=== PATIENT | female | born 1960 | race Caucasian/White ===

== ENCOUNTER → 2022-01-26 | Outpatient (CLI) | payer MEDICARE, OTHER ==
[2022-01-26 14:49] LABS: Campylobacter Sp Detected (NOT DETECT); E. Coli O157 Not Detected (NOT DETECT); Enteroaggregative E. coli-EAEC Not Detected (NOT DETECT); Enteropathogenic E. coli-EPEC Detected (NOT DETECT); Enterotoxigenic E. coli-ETEC Not Detected (NOT DETECT); Plesiomonas Shigelloides Not Detected (NOT DETECT); Salmonella Sp Not Detected (NOT DETECT); Shiga Toxin-prod E. coli-STEC Not Detected (NOT DETECT); Vibrio Cholerae Not Detected (NOT DETECT); Vibrio Sp Not Detected (NOT DETECT); Yersinia Enterocolitica Not Detected (NOT DETECT)
[2022-01-26 14:50] LABS: Adenovirus F 40/41 Not Detected (NOT DETECT); Astrovirus Not Detected (NOT DETECT); Cryptosporidium Not Detected (NOT DETECT); Cyclospora Cayetanensis Not Detected (NOT DETECT); Entamoeba Histolytica Not Detected (NOT DETECT); Giardia Lamblia Not Detected (NOT DETECT); Norovirus GI/GII Not Detected (NOT DETECT); Rotavirus A Not Detected (NOT DETECT); Sapovirus Not Detected (NOT DETECT); Shigella/Enteroin E. coli-EIEC Not Detected (NOT DETECT)
== END | disposition home or self-care (01) ==
LOC: LAB 07:30 → LAB SHORT 07:30
PROVIDERS: Family Medicine
DX: K52.9 Noninfective gastroenteritis and colitis, unspecified (principal)
CPT/HCPCS: 87507

== ENCOUNTER 2022-03-31 19:15 | Emergency (ER) | payer MEDICARE, OTHER ==
[~2022-03-31] VITALS: Ht 157.5 cm; Wt 78.5 kg
== END 2022-03-31 21:45 | disposition home or self-care (01) ==
LOC: ER 19:15
DX: S01.01XA Laceration without foreign body of scalp, initial encounter (principal); W22.09XA Striking against other stationary object, initial encounter; Z87.891 Personal history of nicotine dependence
CPT/HCPCS: 12001; 99282

== ENCOUNTER 2022-07-13 10:15 | Day surgery (SDC) | payer MEDICARE, OTHER ==
[~2022-07-13] VITALS: Ht 157.5 cm; Wt 74.1 kg
[2022-07-13] MEDS ORDERED: ALBU90OI (11:27)
[2022-07-13] MEDS ORDERED: BUPR150ER (11:27)
[2022-07-13] MEDS ORDERED: ATOR40TA (11:27)
[2022-07-13] MEDS ORDERED: VITAMIN D310 MC4 (11:28)
[2022-07-13] MEDS ORDERED: FERSU300 (11:28)
[2022-07-13] MEDS ORDERED: B-12500 MC2 (11:28)
[2022-07-13] MEDS ORDERED: NAPR500 (11:29)
[2022-07-13] MEDS ORDERED: OMEP20ER (11:29)
[2022-07-13] MEDS ORDERED: OXYC5 (11:29)
[2022-07-13] MEDS ORDERED: PREG75 (11:29)
[2022-07-13] MEDS ORDERED: SERT100 (11:29)
[2022-07-13 13:53] VITALS: BP 146/58
== END 2022-07-13 13:46 | disposition home or self-care (01) ==
LOC: ORSCSDS 10:15
PROVIDERS: Orthopaedic Surgery
PROC: 01N54ZZ Release Median Nerve, Percutaneous Endoscopic Approach (ICD-10-PCS; principal; 2022-07-13 12:00)
DX: G56.02 Carpal tunnel syndrome, left upper limb (principal); I10 Essential (primary) hypertension; E78.5 Hyperlipidemia, unspecified; Z87.891 Personal history of nicotine dependence; Z79.899 Other long term (current) drug therapy
CPT/HCPCS: 82947; J2250; J7120

== ENCOUNTER → 2022-09-03 | Outpatient (CLI) | payer MEDICARE, OTHER ==
[~2022-09-03] MED LIST: ALBU90OI; ATOR40TA; B-12500 MC2; BUPR150ER; FERSU300; NAPR500; OMEP20ER; OXYC5; PREG75; SERT100; VITAMIN D310 MC4
== END ==
LOC: LAB 13:31 → LAB SHORT 13:31
DX: R30.0 Dysuria (principal)
CPT/HCPCS: 87077; 87086; 87186

== ENCOUNTER 2022-09-22 21:19 | Emergency (ER) | payer MEDICARE, OTHER ==
[~2022-09-22] VITALS: Ht 157.5 cm; Wt 90.7 kg
[2022-09-22 21:30] VITALS: BP 162/72
[2022-09-22 22:04] LABS: BASOPHILS ABSOLUTE AUTO 0.01 K/mm3 (0.00-0.23); BASOPHILS PERCENT AUTO 0 % (0-2); EOSINOPHILS ABSOLUTE AUTO 0.08 K/mm3 (0.00-0.68); EOSINOPHILS PERCENT AUTO 2 % (0-6); Hematocrit 40.7 % (33.0-51.0); Hemoglobin 13.3 g/dL (11.5-16.0); IMMATURE GRAN PERCENT AUTO 0 % (0-1); LYMPHOCYTES ABSOLUTE AUTO 1.21 K/mm3 (0.84-5.20); LYMPHOCYTES PERCENT AUTO 25 % (21-46); MONOCYTES ABSOLUTE AUTO 0.42 K/mm3 (0.16-1.47); MONOCYTES PERCENT AUTO 9 % (4-13); Mean Corpuscular HGB 29.3 pg (26.0-34.0); Mean Corpuscular HGB Conc 32.7 g/dL (31.5-36.5); Mean Corpuscular Volume 90 fL (80-100); Mean Platelet Volume 12.7 fL (9.1-12.4); NEUTROPHILS ABSOLUTE AUTO 3.07 K/mm3 (1.96-9.15); NEUTROPHILS PERCENT AUTO 64 % (41-73); Platelet Count 82 K/mm3 (150-400); RDW Coefficient Variation 12.7 % (11.7-14.2); RDW Standard Deviation 41.7 fL (35.1-46.3); Red Blood Cell Count 4.54 M/mm3 (3.80-5.20); White Blood Cell Count 4.79 K/mm3 (4.00-11.30)
[2022-09-22 22:13] LABS: Albumin, Blood 3.8 g/dL (3.4-5.0); Albumin/Globulin Ratio 1.3 (0.8-1.8); Bilirubin, Total 0.4 mg/dL (0.1-1.0); Calcium, Blood 8.8 mg/dL (8.5-10.1); Creatinine, Blood 0.79 mg/dL (0.40-1.00); Potassium, Blood 4.3 mmol/L (3.5-5.5); Total Protein, Blood 6.8 g/dL (6.4-8.2)
[2022-09-22 22:42] LABS: Source, Urine Clean Catch
[2022-09-22 22:58] LABS: Appearance, Urine Clear (Clear); Bilirubin, Urine Neg (Neg); Blood, Urine Neg (Neg); Color, Urine Yellow (P-Yellow); Glucose Qualitative, Urine Neg (Neg); Ketones, Urine Neg (Neg); Leukocyte Esterase, Urine Neg (Neg); Nitrite, Urine Neg (Neg); Protein, Urine Neg (Neg); Specific Gravity, Urine 1.015 (1.003-1.022); Urobilinogen, Urine NORM (Normal)
[2022-09-22] MEDS ORDERED: TIZA4 PO (23:59)
== END 2022-09-23 00:16 | disposition home or self-care (01) ==
LOC: ER 21:19
PROVIDERS: Physician Assistant
DX: S39.012A Strain of muscle, fascia and tendon of lower back, initial encounter (principal); S33.5XXA Sprain of ligaments of lumbar spine, initial encounter; E78.5 Hyperlipidemia, unspecified; K21.9 Gastro-esophageal reflux disease without esophagitis; Z88.2 Allergy status to sulfonamides; Z79.899 Other long term (current) drug therapy; Z87.891 Personal history of nicotine dependence; X50.1XXA Overexertion from prolonged static or awkward postures, initial encounter
CPT/HCPCS: 74176; 80053; 81003; 85025; 93005; 93010; 96374; 99284-25; A9270; J1885; Q9967

== ENCOUNTER → 2022-09-29 | Outpatient (CLI) | payer MEDICARE, OTHER ==
[~2022-09-29] MED LIST changes: +TIZA4 PO
[2022-09-30 11:35] LABS: Candida species (DNA Probe) Positive (NEGATIVE); G. vaginalis (DNA Probe) Negative (NEGATIVE); T. vaginalis (DNA Probe) Negative (NEGATIVE)
== END ==
LOC: LAB 14:39 → LAB SHORT 14:39
PROVIDERS: Family Medicine
DX: N76.0 Acute vaginitis (principal)
CPT/HCPCS: 87480; 87510; 87660

== ENCOUNTER 2022-12-23 19:56 | Emergency (ER) | payer MEDICARE, OTHER ==
[~2022-12-23] VITALS: Ht 157.5 cm; Wt 75.3 kg
[2022-12-23 20:29] VITALS: BP 145/68
== END 2022-12-23 21:35 | disposition home or self-care (01) ==
LOC: ER 19:56
DX: B34.9 Viral infection, unspecified (principal); R05.9 Cough, unspecified; E78.5 Hyperlipidemia, unspecified; K21.9 Gastro-esophageal reflux disease without esophagitis; F32.A Depression, unspecified; M79.7 Fibromyalgia; Z87.891 Personal history of nicotine dependence; Z79.899 Other long term (current) drug therapy
CPT/HCPCS: 71046; 99283-25

== ENCOUNTER → 2023-06-30 | Outpatient (CLI) | payer MEDICARE, OTHER ==
[2023-06-30 17:44] LABS: Adenovirus F 40/41 Not Detected (NOT DETECT); Astrovirus Not Detected (NOT DETECT); Campylobacter Sp Not Detected (NOT DETECT); Cryptosporidium Not Detected (NOT DETECT); Cyclospora Cayetanensis Not Detected (NOT DETECT); E. Coli O157 Not Detected (NOT DETECT); Entamoeba Histolytica Not Detected (NOT DETECT); Enteroaggregative E. coli-EAEC Not Detected (NOT DETECT); Enteropathogenic E. coli-EPEC Detected (NOT DETECT); Enterotoxigenic E. coli-ETEC Not Detected (NOT DETECT); Giardia Lamblia Not Detected (NOT DETECT); Norovirus GI/GII Not Detected (NOT DETECT); Plesiomonas Shigelloides Not Detected (NOT DETECT); Rotavirus A Not Detected (NOT DETECT); Salmonella Sp Not Detected (NOT DETECT); Sapovirus Not Detected (NOT DETECT); Shiga Toxin-prod E. coli-STEC Not Detected (NOT DETECT); Shigella/Enteroin E. coli-EIEC Not Detected (NOT DETECT); Vibrio Cholerae Not Detected (NOT DETECT); Vibrio Sp Not Detected (NOT DETECT); Yersinia Enterocolitica Not Detected (NOT DETECT)
== END | disposition home or self-care (01) ==
LOC: LAB SHORT 00:30 → LAB 00:30
PROVIDERS: Physician Assistant
DX: R19.7 Diarrhea, unspecified (principal)
CPT/HCPCS: 87507

== ENCOUNTER 2023-12-11 06:26 | Day surgery (SDC) | payer MEDICARE, OTHER ==
[~2023-12-11] VITALS: Ht 160 cm; Wt 69.6 kg
[2023-12-11] VITALS (18 sets, daily range): BP systolic 95–147; BP diastolic 45–66
[~2023-12-11 06:26] MED LIST changes: -ATOR40TA; +ATOR40TA PO; +Acetaminophen 500 MG Tab PO SCH; -B-12500 MC2; +B-12500 MC2 PO; -BUPR150ER; +BUPR150ER PO; +CeFAZolin Sodium 2,000 MG in NS 100 ML IV SCH; +Chlorhexidine Mouth Care 15 ML UDC MT SCH; -FERSU300; +FERSU300 PO; +Lactated Ringer's 1,000 ML IV SCH; -NAPR500; +NAPR500 PO; -OMEP20ER; +OMEP20ER PO; +OxyCODONE HCL 10 MG TABCR PO SCH; -PREG75; +PREG75 PO; +Ropivacaine 0.5% HCl/Pf 123.125 MG,EPINEPHrine HCL 0.25 MG,Ketorolac Tromethamine 15 MG... INFIL SCH; -SERT100; +SERT100 PO; +Tranexamic Acid 100 ML IV SCH; -VITAMIN D310 MC4; +VITAMIN D310 MC4 PO
[2023-12-11] MEDS ORDERED: Vancomycin HCL 1,000 MG in NS 250 ML IV ONE (06:40)
[2023-12-11] MEDS ORDERED: Midazolam HCl 1MG / ML 2ML Vial IV ONE (07:05)
[2023-12-11] MEDS ORDERED: propofoL 40 ML IV ONE (07:09)
[2023-12-11] MEDS ORDERED: FentaNYL Citrate 50 MCG/ML 2 ML Injection ONE (07:09)
[2023-12-11] MEDS ORDERED: Lidocaine HCl 2% 20 ML MDV ONE (07:12)
[2023-12-11] MEDS ORDERED: Bupivacaine 0.5% HCl 5 MG/ML 30MLVIAL ONE (07:12)
[2023-12-11] MEDS ORDERED: EpiNEPhrine 1 MG/1 ML 1ML Vial ONE (07:12)
[2023-12-11] MEDS ORDERED: Phenylephrine HCl 100 MCG/ML-NS 10MLSYR (1MG/10ML) ONE (07:42)
[2023-12-11] MEDS ORDERED: ePHEDrine Sulfate 50 MG/ML 1ML Injection ONE (07:43)
[2023-12-11] MEDS ORDERED: Metoclopramide HCl 5MG / ML 2ML Vial IV PRN (08:00)
[2023-12-11] MEDS ORDERED: Magnesium Hydroxide Conc 10 ML UDC PO PRN (08:00)
[2023-12-11] MEDS ORDERED: Lactated Ringer's 1,000 ML IV SCH (08:00)
[2023-12-11] MEDS ORDERED: Ondansetron HCl 2 MG / ML 2ML Vial IV PRN (08:05)
[2023-12-11] MEDS ORDERED: Bisacodyl 10 MG Supp PR PRN (08:05)
[2023-12-11] MEDS ORDERED: OxyCODONE HCL 5 MG TAB PO PRN ×2 (08:05)
[2023-12-11] MEDS ORDERED: Promethazine HCl 25 MG Tab PO PRN (08:05)
[2023-12-11] MEDS ORDERED: HYDROmorphone HCl/Pf 1MG SYR IV PRN (08:10)
[2023-12-11] MEDS ORDERED: DiphenhydrAMINE HCL 25 MG Cap PO PRN (08:10)
[2023-12-11] MEDS ORDERED: FLU VACC TS2024-25(6MOS UP)/PF 45 MCG/0.5 ML SYRINGE IM ONE (08:10)
--- NOTE | 2023-12-11 08:16 | NUR ---
12/11/23 0816 Marta Vivas PRIOR TO ARRIVING TO THE OR PATIENT RECEIVED VANCO 1G IV IN THE PREOPERATIVE SETTING. SPINAL BLOCK COMPLETED BY UPON ENTRY TO OR. PATIENT TOLERATED WELL.
[2023-12-11] MEDS ORDERED: Pregabalin 50 MG Capsule PO SCH (09:00)
[2023-12-11] MEDS ORDERED: Docusate Sodium 100 MG Cap PO SCH (09:00)
[2023-12-11] MEDS ORDERED: Omeprazole 20 MG CapCR PO SCH (09:00)
[2023-12-11] MEDS ORDERED: Ferrous Sulfate 325 MG Tab PO SCH (09:00)
[2023-12-11] MEDS ORDERED: Sertraline HCl 100 MG Tab PO SCH (09:00)
[2023-12-11] MEDS ORDERED: buPROPion HCL 150 MG TAB.SR.12H PO SCH (09:00)
[2023-12-11] MEDS ORDERED: Ketorolac Tromethamine 30mg Vial ONE (09:39)
[2023-12-11] MEDS ORDERED: Ketorolac Tromethamine 15mg Vial IV SCH (12:00)
[2023-12-11] MEDS ORDERED: Acetaminophen 500 MG Tab PO SCH (16:00)
[2023-12-11] MEDS ORDERED: CeFAZolin Sodium 2,000 MG in NS 100 ML IV SCH (16:00)
--- NOTE | 2023-12-11 19:32 | NUR ---
SHIFT SUMMARY AFTER APINAL WORE OFF, PT GOT UP TO BATHROOM & CHAIR. LATER WORKED w/ THERAPY. DENIES PAIN. EATING, DRINKING, & VOIDING.
[2023-12-12 03:48] VITALS: BP 114/54
[2023-12-12 05:09] LABS: BASOPHILS ABSOLUTE AUTO 0.01 K/mm3 (0.00-0.23); BASOPHILS PERCENT AUTO 0 % (0-2); EOSINOPHILS ABSOLUTE AUTO 0.11 K/mm3 (0.00-0.68); EOSINOPHILS PERCENT AUTO 2 % (0-6); Hematocrit 34.4 % (33.0-51.0); Hemoglobin 11.3 g/dL (11.5-16.0); IMMATURE GRAN PERCENT AUTO 0 % (0-1); LYMPHOCYTES ABSOLUTE AUTO 0.93 K/mm3 (0.84-5.20); LYMPHOCYTES PERCENT AUTO 21 % (21-46); MONOCYTES ABSOLUTE AUTO 0.44 K/mm3 (0.16-1.47); MONOCYTES PERCENT AUTO 10 % (4-13); Mean Corpuscular HGB Conc 32.8 g/dL (31.5-36.5); Mean Corpuscular Volume 91 fL (80-100); Mean Platelet Volume 12.2 fL (9.1-12.4); NEUTROPHILS ABSOLUTE AUTO 3.04 K/mm3 (1.96-9.15); NEUTROPHILS PERCENT AUTO 67 % (41-73); Platelet Count 84 K/mm3 (150-400); RDW Coefficient Variation 13.1 % (11.7-14.2); RDW Standard Deviation 43.7 fL (35.1-46.3); Red Blood Cell Count 3.77 M/mm3 (3.80-5.20); White Blood Cell Count 4.53 K/mm3 (4.00-11.30)
[2023-12-12 06:18] LABS: Bun/Creatinine Ratio 24.2 (12.0-20.0); Calcium, Blood 8.8 mg/dL (8.5-10.1); Creatinine, Blood 0.99 mg/dL (0.40-1.00); Magnesium, Blood 1.8 mg/dL (1.6-2.4); Potassium, Blood 3.9 mmol/L (3.5-5.5)
--- NOTE | 2023-12-12 07:19 | NUR ---
SHIFT SUMMARY POD 1 R TKA. NO ACUTE CHANGES OVERNIGHT. VSS. TOLERATING ORALS. VOIDING. AMB USING FWW c SBA. RESTING IN CHAIR c POLAR PACK IN USE. PT REPORTS PAIN TOLERABLE, MEDICATED PER EMAR. ANTICIPATED DISCHARGE LATER TODAY. CALL LIGHT IN REACH, REPORT GIVEN TO NIRALI AMARO.
[2023-12-12] MEDS ORDERED: ASPI81CH PO (07:59)
[2023-12-12] MEDS ORDERED: ACET500 PO (07:59)
[2023-12-12] MEDS ORDERED: OXYC5 PO (07:59)
[2023-12-12] MEDS ORDERED: Aspirin 81 MG Chew PO SCH (09:00)
[2023-12-12 09:15] VITALS: BP 111/61
--- NOTE | 2023-12-12 11:34 | NUR ---
DISCHARGE PT PROVIDED WITH WRITTEN AND VERBAL DISCHARGE INSTRUCTIONS BY JUAN AMARO. DRESSINGS PROVIDED. PT CLEARED THERAPY, VOIDING, PAIN MANAGED, AND TOLERATING PO PRIOR TO DISCHARGE. VSS. PT ASSISTED OUT AT APPROXIMATELY 1130.
== END 2023-12-12 11:25 | disposition home or self-care (01) ==
LOC: ORSCMMR 06:26 → ORD 07:30 → ORSCMMR 07:30 → SURS 09:59 → ORSCMMR 12-12 11:25 → ORD 12-25 10:15
PROVIDERS: Orthopaedic Surgery
PROC: 8E0Y0CZ Robotic Assisted Procedure of Lower Extremity, Open Approach (ICD-10-PCS; principal; 2023-12-11 07:30)
PROC: 0SRC0JA Replacement of Right Knee Joint with Synthetic Substitute, Uncemented, Open Approach (ICD-10-PCS; principal; 2023-12-11 07:30)
DX: M17.11 Unilateral primary osteoarthritis, right knee (principal); I10 Essential (primary) hypertension; E78.5 Hyperlipidemia, unspecified; Z87.891 Personal history of nicotine dependence; J45.909 Unspecified asthma, uncomplicated; Z79.899 Other long term (current) drug therapy
CPT/HCPCS: 27447; 0055T; 36415; 73560-RT; 80048; 83735; 85025; 97110; 97161; 97530; A9270; C1713; C1776; J0171; J0690; J0735; J1885; J2250; J2371; J2704; J2795; J3010; J3370; J7050; J7120

== ENCOUNTER → 2024-01-12 | Outpatient (CLI) | payer MEDICARE, OTHER ==
[~2024-01-12] MED LIST changes: +ACET500 PO; +ASPI81CH PO; -Acetaminophen 500 MG Tab PO SCH; -CeFAZolin Sodium 2,000 MG in NS 100 ML IV SCH; -Chlorhexidine Mouth Care 15 ML UDC MT SCH; -Lactated Ringer's 1,000 ML IV SCH; +OXYC5 PO; -OxyCODONE HCL 10 MG TABCR PO SCH; -Ropivacaine 0.5% HCl/Pf 123.125 MG,EPINEPHrine HCL 0.25 MG,Ketorolac Tromethamine 15 MG... INFIL SCH; -Tranexamic Acid 100 ML IV SCH
[2024-01-12 15:43] LABS: Bacterial Vaginosis PCR Negative (NEGATIVE); Candida Group, PCR NOT DETECTED (NOT DETECT); Candida glabrata-krusei, PCR NOT DETECTED (NOT DETECT)
== END ==
LOC: LAB SHORT 12:47 → LAB 12:47
PROVIDERS: Advanced Practice Midwife
DX: N76.0 Acute vaginitis (principal)
CPT/HCPCS: 87481; 87661; 87801

== ENCOUNTER 2024-04-17 09:12 | Day surgery (SDC) | payer MEDICARE, OTHER ==
[2024-04-17] VITALS (17 sets, daily range): BP systolic 105–147; BP diastolic 51–116
[~2024-04-17] VITALS: Ht 157.5 cm; Wt 72.4 kg
[~2024-04-17 09:12] MED LIST changes: +Lactated Ringer's 1,000 ML IV SCH
--- NOTE | 2024-04-17 10:32 | NUR ---
Ambulatory in Day Surgery. History, Chart, Medications and Allergies reviewed before start of procedure. Lungs clear T/O to Auscultation. Patient confirms NPO status and agrees with scheduled surgery. Pre-Op teaching done. Pt verbalizes understanding. Patient States Post-Procedure ride home has been arranged.
[2024-04-17] MEDS ORDERED: propofoL 0 ML IV ONE (10:44)
--- NOTE | 2024-04-17 11:07 | NUR ---
04/17/24 1107 Jeyson Plummer CONFIRMED AND REVIEWED H&P, MEDCICATIONS, ALLERGIES, MEDICAL HISTORY, RESPIRATORY HISTORY, VITAL SIGNS, 3-LEAD EKG, CONSENTS, AND PHYSICIAN ORDERS. PATIENT CONFIRMS NPO STATUS AND AGREES WITH SCHEDULED PROCEDURE. MONITOR INTACT WITH CONTINUOUS PULSE OXIMETRY, CAPNOGRAPHY, 3-LEAD EKG, INTERMITTENT BP. SUPPLEMENTAL O2 TO BE TITRATED THROUGHOUT PROCEDURE TO MAINTAIN O2 SATURATION ABOVE 90%. PATIENT DETERMINED TO BE ASA APPROPRIATE FOR PROPOFOL SEDATION PRIOR TO START OF PROCEDURE BY DR. SHEARER
--- NOTE | 2024-04-17 12:04 | NUR ---
Discharge instructions reviewed with patient. Patient verbalizes understanding. Copy given to patient to take home. Discharged via wheelchair to private car for ride home.
== END 2024-04-17 11:58 | disposition home or self-care (01) ==
LOC: ORSCMMR 09:12 → ORD 10:30 → ORSCMMR 11:58
PROVIDERS: Internal Medicine Gastroenterology
PROC: 0DJD8ZZ Inspection of Lower Intestinal Tract, Via Natural or Artificial Opening Endoscopic (ICD-10-PCS; principal; 2024-04-17 10:30)
DX: Z12.11 Encounter for screening for malignant neoplasm of colon (principal); J44.9 Chronic obstructive pulmonary disease, unspecified; Z87.891 Personal history of nicotine dependence; K21.9 Gastro-esophageal reflux disease without esophagitis; F32.A Depression, unspecified; E78.00 Pure hypercholesterolemia, unspecified; Z79.899 Other long term (current) drug therapy
CPT/HCPCS: J2704; J7120

== ENCOUNTER 2024-05-21 09:54 | Emergency (ER) | payer OTHER, MEDICARE ==
[~2024-05-21] VITALS: Ht 160 cm; Wt 69.4 kg
[~2024-05-21 09:54] MED LIST changes: -Lactated Ringer's 1,000 ML IV SCH
[2024-05-21 10:02] VITALS: BP 126/77
[2024-05-21] MEDS ORDERED: Tetanus,Diphtheria Toxd Ped/Pf 0.5 ML VIAL IM ONE (10:05)
[2024-05-21] MEDS ORDERED: AMOCLA875 PO (10:06)
[2024-05-21] MEDS ORDERED: Diphth,Pertuss(Acell),Tet Vac 0.5 ML VIAL IM ONE (10:40)
== END 2024-05-21 10:58 | disposition home or self-care (01) ==
LOC: ER 09:54
DX: S61.151A Open bite of right thumb with damage to nail, initial encounter (principal); E78.5 Hyperlipidemia, unspecified; K21.9 Gastro-esophageal reflux disease without esophagitis; Z88.2 Allergy status to sulfonamides; Z88.8 Allergy status to other drugs, medicaments and biological substances; Z79.899 Other long term (current) drug therapy; Z87.891 Personal history of nicotine dependence; W54.0XXA Bitten by dog, initial encounter
CPT/HCPCS: 90471; 90702; 90715; 99282-25

== ENCOUNTER 2024-08-21 21:58 | Emergency (ER) | payer MEDICARE, OTHER ==
[~2024-08-21] VITALS: Ht 157.5 cm; Wt 72.6 kg
[~2024-08-21 21:58] MED LIST changes: +AMOCLA875 PO
[2024-08-21 22:18] VITALS: BP 135/86
[2024-08-21] MEDS ORDERED: CLOBETASOL EMOL15 G1 TOP (23:34)
[2024-08-21] MEDS ORDERED: Triamcinolone Inj Susp 40 MG / ML 1ML Vial IM ONE (23:40)
== END 2024-08-21 23:44 | disposition home or self-care (01) ==
LOC: ER 21:58
DX: L25.5 Unspecified contact dermatitis due to plants, except food (principal); E78.5 Hyperlipidemia, unspecified; K21.9 Gastro-esophageal reflux disease without esophagitis; Z87.891 Personal history of nicotine dependence; Z88.2 Allergy status to sulfonamides; Z88.8 Allergy status to other drugs, medicaments and biological substances
CPT/HCPCS: 96372; 99282-25; J3301

== ENCOUNTER 2024-10-06 18:38 | Emergency (ER) | payer MEDICARE, OTHER ==
[~2024-10-06] VITALS: Ht 157.5 cm; Wt 77.6 kg
[~2024-10-06 18:38] MED LIST changes: +CLOBETASOL EMOL15 G1 TOP
[2024-10-06 18:47] VITALS: BP 178/80
[2024-10-06] MEDS ORDERED: DOXY100 PO (18:55)
[2024-10-06] MEDS ORDERED: MUPIROCIN1 G1 TOP (18:55)
== END 2024-10-06 19:15 | disposition home or self-care (01) ==
LOC: ER 18:38
DX: L03.316 Cellulitis of umbilicus (principal); E78.5 Hyperlipidemia, unspecified; G20.A1 Parkinson's disease without dyskinesia, without mention of fluctuations; K21.9 Gastro-esophageal reflux disease without esophagitis; Z87.891 Personal history of nicotine dependence; Z88.2 Allergy status to sulfonamides; Z88.8 Allergy status to other drugs, medicaments and biological substances; Z79.899 Other long term (current) drug therapy
CPT/HCPCS: 99283; A9270

== ENCOUNTER → 2024-10-24 | Outpatient (CLI) | payer MEDICARE, OTHER ==
[~2024-10-24] MED LIST changes: +DOXY100 PO; +MUPIROCIN1 G1 TOP
== END ==
LOC: LAB 14:33 → LAB SHORT 14:33
DX: N39.0 Urinary tract infection, site not specified (principal); R31.9 Hematuria, unspecified
CPT/HCPCS: 87077; 87086; 87186

== ENCOUNTER → 2024-11-17 | Outpatient (CLI) | payer MEDICARE, OTHER | LOC: LAB SHORT 12:16 → LAB 12:16 | DX: N39.0 Urinary tract infection, site not specified (principal) | CPT/HCPCS: 87077; 87086; 87186 ==